=== PATIENT | female | born 1940 | race Caucasian/White ===

== ENCOUNTER 2023-03-30 16:11 | Emergency (ER) | payer MEDICARE, BC ==
[2023-03-30] MEDS ORDERED: Take Home: Acetaminophen/HYDROcodone 325-5 MG, 5 Tab Pack PO ONE (17:39)
[2023-03-30 18:29] VITALS: BP 126/60; PULSE 91
== END 2023-03-30 17:50 | disposition home or self-care (01) ==
LOC: VM.ED 16:11
DX: S52.302A Unspecified fracture of shaft of left radius, initial encounter for closed fracture (principal); S52.612A Displaced fracture of left ulna styloid process, initial encounter for closed fracture; W01.0XXA Fall on same level from slipping, tripping and stumbling without subsequent striking against object, initial encounter; Y92.009 Unspecified place in unspecified non-institutional (private) residence as the place of occurrence of the external cause; E78.00 Pure hypercholesterolemia, unspecified; I10 Essential (primary) hypertension; M19.90 Unspecified osteoarthritis, unspecified site; E66.9 Obesity, unspecified; Z68.34 Body mass index [BMI] 34.0-34.9, adult; Z79.82 Long term (current) use of aspirin; Z79.899 Other long term (current) drug therapy; Z88.0 Allergy status to penicillin
CPT/HCPCS: 73110; 99283; A9270; 99284

== ENCOUNTER 2023-09-16 18:11 | Emergency (ER) | payer MEDICARE, BC ==
[2023-09-16] MEDS ORDERED: Sodium Chloride 0.9% 10 ML Syringe FLUSH PRN (18:28)
[2023-09-16 18:41] LABS: BASOPHILS PERCENT AUTO 0.3 % (0.2-1.2); EOSINOPHILS ABSOLUTE AUTO 1.2 x10^3/uL (0.0-0.5); EOSINOPHILS PERCENT AUTO 10.5 % (0.0-4.0); HEMATOCRIT 39.6 % (33.0-47.0); IMMATURE GRAN ABSOLUTE AUTO 0.04 x10^3/uL (0.00-0.07); LYMPHOCYTES ABSOLUTE AUTO 0.6 x10^3/uL (1.0-4.8); MEAN CORPUSCULAR HEMOGLOBIN 31.2 pg (26.0-32.0); MEAN CORPUSCULAR HGB CONC 32.8 g/dL (32.0-36.0); MONOCYTES ABSOLUTE AUTO 0.6 x10^3/uL (0.0-0.8); MONOCYTES PERCENT AUTO 5.6 % (2.0-11.0); NEUTROPHILS ABSOLUTE AUTO 8.9 x10^3/uL (1.8-7.7); NEUTROPHILS PERCENT AUTO 78.3 % (50.0-80.0); PLATELET COUNT,PLT 302 x10^3/uL (130-400); RED BLOOD CELL COUNT 4.17 x10^6/uL (4.00-5.50); WHITE BLOOD CELL COUNT,WBC 11.4 x10^3/uL (4.0-10.0)
[2023-09-16 18:46] LABS: LYMPHOCYTES PERCENT AUTO 4.9 % (25.0-50.0)
[2023-09-16 18:55] LABS: PROTHROMBIN TIME 9.8 SEC (8.9-11.5)
[2023-09-16 18:58] VITALS: PULSE 116
[2023-09-16 18:59] LABS: A/G RATIO 0.73; ANION GAP 12.8 mmol/L (5-15); BILIRUBIN TOTAL 0.4 mg/dL (0.2-1.0); C-REACTIVE PROTEIN 4.27 mg/dL (<=0.50); CALCIUM 9.9 mg/dL (8.5-10.1); CREATININE 0.7 mg/dL (0.55-1.02); EST CRCL DRUG DOSING (CG) 45.95 mL/min; MAGNESIUM 1.7 mg/dL (1.8-2.4); POTASSIUM,K 3.8 mmol/L (3.5-5.1); PROTEIN TOTAL,TP 7.1 g/dL (6.4-8.2)
[2023-09-16] MEDS: Sodium Chloride 0.9% 1,000 ML IV SCH (18:59)
[2023-09-16] MEDS: cefTRIAXone 1 GM Vial IVPUSH ONE (19:00)
[2023-09-16] MEDS: Acetaminophen 500 MG Tab PO ONE (19:00)
[2023-09-16 19:02] LABS: LACTIC ACID 1.6 mmol/L (0.4-2.0)
[2023-09-16] MEDS: Ondansetron 4 MG/2 ML SDV IVPUSH ONE (19:05)
[2023-09-16 19:47] LABS: APPEARANCE,URINE TURBID (CLEAR); BILIRUBIN,URINE NEGATIVE (NEGATIVE); COLOR,URINE YELLOW (YELLOW); GLUCOSE,URINE NEGATIVE (NEGATIVE); KETONES,URINE NEGATIVE (NEGATIVE); LEUKOCYTE ESTERASE,URINE SMALL (NEGATIVE); NITRITE,URINE NEGATIVE (NEGATIVE); OCCULT BLOOD,URINE MODERATE (NEGATIVE); PROTEIN,URINE 100 mg/dL (NEGATIVE); UROBILINOGEN,URINE 0.2 EU/dL (0.2)
[2023-09-16 19:52] LABS: SQUAMOUS EPITHELIAL CELLS,UR OCCASIONAL /HPF (NOT SEEN); WBC,URINE 20-30 /HPF (NOT SEEN)
[2023-09-16 19:53] LABS: BACTERIA,URINE MODERATE /HPF (NOT SEEN); CALCIUM OXALATE CRYSTALS,URINE FEW /HPF (NOT SEEN); HYALINE CASTS,URINE OCCASIONAL; MUCUS,URINE FEW /LPF (NOT SEEN); YEAST BUDDING,URINE OCCASIONAL /HPF (NONE - FEW)
[2023-09-16] MEDS: Take Home: Ondansetron 4 MG Tab.DIS, 5 Tab Pack PO ONE (20:20)
[2023-09-17 03:27] VITALS: BP 129/56
== END 2023-09-16 20:35 ==
LOC: VM.ED 18:11
DX: N39.0 Urinary tract infection, site not specified (principal); I10 Essential (primary) hypertension; E78.00 Pure hypercholesterolemia, unspecified; E66.9 Obesity, unspecified; K21.9 Gastro-esophageal reflux disease without esophagitis; Z79.899 Other long term (current) drug therapy; Z79.82 Long term (current) use of aspirin; Z88.0 Allergy status to penicillin; Z68.30 Body mass index [BMI] 30.0-30.9, adult
CPT/HCPCS: 36415; 51702; 71045; 80053; 81001; 83605; 83735; 85025; 85610; 85730; 86140; 87040; 87086; 93005; 96361; 96374; 96375; 99285-25; A9270-GY; J0696; J2405; J7030; Q0162